=== PATIENT | male | born 1990 | race African-American/Black ===

== ENCOUNTER 2020-09-07 08:40 | Emergency (ER) | payer SELFPAY ==
[2020-09-07] MEDS ORDERED: Acetaminophen 325 MG TAB ONE (09:08)
[2020-09-07] MEDS ORDERED: Ibuprofen 200 MG TAB ONE (09:09)
== END 2020-09-07 09:45 | disposition home or self-care (01) ==
LOC: CSHERS 08:40
DX: S89.91XA Unspecified injury of right lower leg, initial encounter (principal); J45.909 Unspecified asthma, uncomplicated; F17.210 Nicotine dependence, cigarettes, uncomplicated; X50.0XXA Overexertion from strenuous movement or load, initial encounter; Y93.67 Activity, basketball

== ENCOUNTER 2022-05-15 11:05 | Emergency (ER) | payer SELFPAY ==
[2022-05-15 12:46] LABS: Bilirubin Neg (Negative); Blood, Urine 50 (Negative); Glucose, Urine (Dipstick) Normal (Negative); Ketone, Urine 15 mg/dL (Negative); Leukocyte 500 (Negative); Nitrite Negative (Negative); Protein, Urine (Dipstick) 30 mg/dl (Neg-Trace)
[2022-05-15 12:48] LABS: Clarity Hazy (Clear)
[2022-05-15] MEDS ORDERED: Lidocaine 1% PF 5 ML VIAL ONE (12:55)
[2022-05-15] MEDS ORDERED: cefTRIAXone\\ROCEPHIN 500 MG VIAL ONE (12:55)
[2022-05-15] MEDS ORDERED: Azithromycin 250 MG TAB ONE (12:56)
[2022-05-15 13:10] LABS: Bacteria/HPF None Seen HPF (None Seen); RBC/HPF 0-3 HPF (0-3); Squamous Epithelial 0-3 HPF (0-3)
[2022-05-16 11:25] LABS: Chlam.trachomatis by PCR,Urine Not Detected (NotDetected)
== END 2022-05-15 13:07 | disposition home or self-care (01) ==
LOC: CSHERS 11:05
DX: R36.9 Urethral discharge, unspecified (principal); F17.210 Nicotine dependence, cigarettes, uncomplicated
CPT/HCPCS: 81003; 81015; 87491; 87591; 96372; 99283; J0696